=== PATIENT | female | born 1965 | race Asian ===

== ENCOUNTER 2019-04-04 08:57 | Observation (INO) | payer MEDICAID ==
[2019-04-04] MEDS ORDERED: Propofol 200 MG/20 ML SDV ONE (09:20)
[2019-04-04] MEDS ORDERED: Succinylcholine 200 MG/10 ML MDV ONE (09:20)
[2019-04-04] MEDS ORDERED: Glycopyrrolate 0.2 MG/ML 5 ML MDV ONE (09:20)
[2019-04-04] MEDS ORDERED: Dexamethasone 4 MG/ML SDV ONE (09:20)
[2019-04-04] MEDS ORDERED: Ondansetron 4 MG/2 ML SDV ONE (09:20)
[2019-04-04] MEDS ORDERED: Rocuronium 50 MG/5 ML Vial ONE (09:20)
[2019-04-04] MEDS ORDERED: Neostigmine Methylsulfate 1 MG/ML 5 ML Syringe ONE (09:20)
[2019-04-04] MEDS ORDERED: fentaNYL 250 MCG/5 ML SDV ONE ×2 (09:22→10:28)
[2019-04-04] MEDS: Sodium Chloride 0.9% 1,000 ML IV SCH ×3 (09:53→23:09)
[2019-04-04] MEDS ORDERED: Albuterol/Ipratropium 3.0-0.5 MG/3 ML Neb Soln NEB ONE (10:00)
[2019-04-04] MEDS ORDERED: ceFAZolin 2 GM in Premix Bag 1 BAG IV ONE (10:30)
[2019-04-04] MEDS ORDERED: Ropivacaine 36 ML, dexAMETHasone 8 MG, EPINEPHrine 0.4 MG, Sodium Chloride 0.9% 41.6 ML NERVRT SCH ×4 (10:30)
[2019-04-04] MEDS ORDERED: ceFAZolin 2 GM in Sodium Chloride 0.9% 50 ML IV ONE (10:30)
[2019-04-04] MEDS ORDERED: metroNIDAZOLE/Normal Saline 500 MG in Premix Bag 1 BAG IV ONE (10:30)
[2019-04-04] MEDS ORDERED: Naloxone 0.4 MG/ML SDV ONE (11:43)
[2019-04-04] MEDS ORDERED: Sugammadex Sodium 200 MG/2 ML VIAL ONE (11:43)
[2019-04-04] MEDS ORDERED: Ondansetron 4 MG Tab.DIS PO PRN (11:51)
[2019-04-04] MEDS ORDERED: Benzocaine/Cetylpyridinium/Menthol Lozenge MUCMEM PRN ×2 (11:51)
[2019-04-04] MEDS ORDERED: Ondansetron 4 MG/2 ML SDV IVPUSH PRN (11:51)
[2019-04-04] MEDS ORDERED: hydrOXYzine HCl 100 MG/2 ML SDV IM PRN (11:51)
[2019-04-04] MEDS ORDERED: diphenhydrAMINE 50 MG/ML SDV IVPUSH PRN (11:51)
[2019-04-04] MEDS ORDERED: Bisacodyl 5 MG Tab PO PRN (11:51)
[2019-04-04] MEDS ORDERED: Non-Formulary Medication 1 Each (Naloxone Hcl [Narcan] 4 MG) NS PRN (11:53)
[2019-04-04] MEDS ORDERED: Albuterol 8 GM Inhaler INH PRN (11:53)
[2019-04-04] MEDS ORDERED: Ibuprofen 800 MG Tab PO PRN (11:53)
[2019-04-04] MEDS ORDERED: Non-Formulary Medication 1 Each (Zolpidem Tartrate [Ambien] 10 MG) PO PRN (11:53)
[2019-04-04] MEDS ORDERED: Albuterol 0.083% 2.5 MG/3 ML Neb Soln NEB PRN (11:53)
[2019-04-04] MEDS ORDERED: ceFAZolin 2 GM in Premix Bag 1 BAG IV SCH (12:00)
[2019-04-04] MEDS ORDERED: Zolpidem 5 MG Tab PO PRN (12:23)
[2019-04-04] MEDS: Ketorolac 30 MG/ML SDV IVPUSH PRN (12:56)
[2019-04-04] MEDS: ClonazePAM 1 MG Tab PO SCH ×2 (14:58→21:17)
[2019-04-04] MEDS: fentaNYL 100 MCG/2 ML SDV IVPUSH PRN (14:58)
[2019-04-04] MEDS: Sucralfate 1 GM Tab PO SCH ×2 (16:56→19:34)
[2019-04-04] MEDS: ceFAZolin 2 GM in Sodium Chloride 0.9% 50 ML IV SCH (17:15)
[2019-04-04] MEDS: Acetaminophen/HYDROcodone 325-10 MG Tab PO PRN (19:40)
[2019-04-05] MEDS: Acetaminophen/HYDROcodone 325-10 MG Tab PO PRN ×5 (00:17→17:01)
[2019-04-05] MEDS: ceFAZolin 2 GM in Sodium Chloride 0.9% 50 ML IV SCH (02:09)
[2019-04-05] MEDS ORDERED: Iopamidol 612 MG/ML 50 ML SDV PO STA (04:05)
--- NOTE | 2019-04-05 05:08 | CRLCR ---
Indication: Laparoscopic José Luis fundoplication, assess for leak Technique: Two frontal views of the abdomen acquired following ingestion of iodinated contrast material. Comparison: None Findings/Impression: Contrast is seen within the distal esophagus and stomach. No extraluminal contrast extravasation is demonstrated. Dictated by Mark Anne MD @ Apr 05 2019 5:07AM Signed by Dr. Mark Anne @ Apr 05 2019 5:07AM
[2019-04-05] MEDS: Sodium Chloride 0.9% 1,000 ML IV SCH (06:05)
[2019-04-05] MEDS: Ketorolac 30 MG/ML SDV IVPUSH PRN (06:22)
[2019-04-05] MEDS: fentaNYL 100 MCG/2 ML SDV IVPUSH PRN (07:39)
[2019-04-05] MEDS: Sucralfate 1 GM Tab PO SCH ×3 (07:40→17:05)
--- NOTE | 2019-04-05 07:49 | OR ---
DATE OF PROCEDURE: 04/04/2019 SURGEON: Mick Curiel MD PROCEDURES: 1. Laparoscopic José Luis fundoplication with hiatal hernia repair (69128). 2. EGD (19775). 3. Wedge biopsy of liver, left lobe (81315). FINDINGS: 1. Kruib-cu-ghdjhduc-sized paraesophageal hernia. 2. Normal EGD intraoperatively with good fundoplication wrap. 3. Scarring on the left anterior aspect of the liver (wedge biopsy performed). COMPLICATIONS: None. DIRECTOR RIVER RESTORATION: None. RISKS: Risks, benefits, alternatives, and limitations including, but not limited to infection; bleeding; injury to esophagus, stomach, blood vessels, and other intraabdominal structures. The patient also had multiple long discussions about expected outcome with respect to the surgery. She does have manometry-proven dysphagia. We did discuss that due to this, the wrap will be a loose or floppier-type wrap, and this may result in worsening dysphagia. The patient understands these risks, and again we reviewed this several times and we will proceed today. PROCEDURE IN DETAIL: The patient was placed in supine position. At 15 cm inferior and 5 cm to the left, a 12 mm incision was made and a Veress needle was used to enter the abdomen without abnormality. A drop test was also performed. After subsequent insufflation, an Optiview trocar was entered. No evidence of enterotomy or injury was noted. Four additional 5 mm ports were also entered under direct visualization. The first one was epigastric and with the use of a liver retractor, there would be left and right hands in the subcostal margin and laterally to the left will be assistance port. No evidence of injuries noted during entry of these. The liver itself was noted to have scarring-type injury, most likely due to the patient's history. However, a wedge biopsy was then performed of the anterior edge of this liver. No bleeding was noted. This was sent for Pathology. The dissection initiated in a classic fashion with the dissection of the right kay as far medial as possible. The patient did have some extensive inflammation in this area, most consistent with a history of both chronic and acute history of esophagitis. This dissection continued. The anterior vagus nerve would be readily identified and would be preserved. Once significant dissection of the right side was completed, attention was turned to the left. This was performed by transection of the short gastrics by using the delivery driver assistant port, traction and countertraction. The Harmonic scalpel equivalent was used to transect these short gastrics without any abnormal bleeding. Once up to the left kay, the dissection continued including rolling the esophagus and stomach back to ensure proper mobilization and dissection of the posteromedial aspect of the connection between the kay and the stomach. The hiatal hernia was then dissected. The sac was dissected and subsequently removed from the chest. At this point, a Len drain was able to be passed. The posterior aspect of the stomach would be marked at this time to prevent any abnormal rotation of the stomach during fundoplication. The paraesophageal hernia repair would be a posterior repair. This was repaired with multiple posterior stitches consisting of a Tycron-type stitch. Once the posterior repair was completed, an anterior repair would also be performed in the same manner. Prior to this, attention was made to ensure there was no evidence of abnormal bleeding, which none was noted. The surgical field would be irrigated. A 57-[place] bougie to be introduced and the wrap would be performed. The wrap was performed by grabbing the marked posterior location, bringing it in classic 360- degree wrap fashion. A shoeshine maneuver was also performed. Of note, when the wrap was released, it did not retract and stayed static in its position highlighting a tensionless procedure. Due to the patient's dysphagia, a loose wrap would be performed with only 2 stitches and approximately 2 cm of flap. A clamp or two could easily be placed between the wrap and the esophagus with respect to tension. The sutures were placed through the stomach, then esophagus, and then through the stomach and approximated but not strangulated. The mesh was then placed over the anterior aspect of the wrap and tacked into place. This was a bioabsorbable mesh. The EGD was then performed next. This was performed by introducing to the esophagus and advanced without abnormality. On retroflexion, did have a good wrap. No evidence of perforation or abnormality noted. No abnormality on leak test. The air was removed after further inspection. The wounds were closed with 3-0 Vicryl and 4- 0 Vicryl and Dermabond. The patient tolerated the procedure well. Mick Curiel MD /[id number]
--- NOTE | 2019-04-05 07:52 | OR ---
DATE OF PROCEDURE: 04/04/2019 SURGEON: Mick Curiel MD PROCEDURE: Transversus abdominis plane block, bilaterally. COMPLICATION: None. LOBBY ATTENDANT: None. RISKS: Risks, benefits, alternatives, and limitations including, but not limited to infection, bleeding, injury to abdominal structures were explained to the patient, who wished to proceed. PROCEDURE IN DETAIL: The patient was placed in a supine position. The left transversus plane was identified first. This was advanced and identified under direct ultrasound guidance using a 12 megahertz probe. The entire contents were injected on the left side. The right side was then performed in same manner, same fashion, same technique, in the same sequence, using the same equipment, except for different needle and syringe. The patient tolerated the procedure well. Mick Curiel MD /[id number]
[2019-04-05] MEDS: ClonazePAM 1 MG Tab PO SCH ×2 (08:32→13:01)
[2019-04-05] MEDS ORDERED: Hydrochlorothiazide 12.5 MG Cap PO SCH (09:00)
[2019-04-05] MEDS ORDERED: DULoxetine 30 MG Cap PO SCH (09:00)
[2019-04-05] MEDS ORDERED: Aspirin 81 MG Tab.EC PO SCH (09:00)
[2019-04-05] MEDS ORDERED: Tamsulosin 0.4 MG Cap.ER PO SCH (09:00)
[2019-04-05] MEDS ORDERED: Lisinopril 10 MG Tab PO SCH (09:00)
[2019-04-05] MEDS ORDERED: FLU Vacc QS2019-20(6MOS+)/PF 60 MCG/0.5 ML SYRINGE IM ONE (10:00)
[2019-04-05] MEDS ORDERED: Ibuprofen 800 MG Tab PO PRN (12:00)
== END 2019-04-05 19:35 | disposition home or self-care (01) ==
LOC: JP.SDS 08:57 → JP.MS 11:51 → UNDOADMOB 11:51
PROVIDERS: ADMIT Surgery; ATTEND Surgery
DX: K44.9 Diaphragmatic hernia without obstruction or gangrene (principal); K74.0 Hepatic fibrosis; J44.9 Chronic obstructive pulmonary disease, unspecified; K21.9 Gastro-esophageal reflux disease without esophagitis; F41.9 Anxiety disorder, unspecified; F32.9 Major depressive disorder, single episode, unspecified; G89.18 Other acute postprocedural pain; Z88.1 Allergy status to other antibiotic agents; Z88.5 Allergy status to narcotic agent; Z88.8 Allergy status to other drugs, medicaments and biological substances; Z23 Encounter for immunization; Z87.891 Personal history of nicotine dependence; Z79.51 Long term (current) use of inhaled steroids; Z79.899 Other long term (current) drug therapy
CPT/HCPCS: 36415; 43282; 47379; 64486; 74240; 80048; 85027; 90686; 94640; A9270; C1713; C1776; J0171; J0330; J0690; J1100; J1885; J2310; J2405; J2704; J2710; J2795; J3010; J3410; J3490; J7030; J7050; Q9967; J7620-GY